=== PATIENT | male | born 1970 ===

== ENCOUNTER 2025-03-07 06:18 | Day surgery (SDC) | payer BC, SELFPAY | END 2025-03-07 13:53 | disposition home or self-care (01) | LOC: GI 06:18 | PROVIDERS: ATTENDING PHYSICIAN Internal Medicine Gastroenterology | DX: Z12.11 Encounter for screening for malignant neoplasm of colon (principal); K64.8 Other hemorrhoids; K57.30 Diverticulosis of large intestine without perforation or abscess without bleeding | CPT/HCPCS: G0121 ==